=== PATIENT | female | born 1960 | race Two or more races ===

== ENCOUNTER 2017-10-13 13:07 | Outpatient (CLI) | payer OTHER | END 2017-10-13 14:00 | disposition home or self-care (01) | LOC: NUCLEAR 13:07 | DX: M81.0 Age-related osteoporosis without current pathological fracture (principal) ==

== ENCOUNTER 2017-10-13 14:32 | Outpatient (CLI) | payer OTHER | END 2017-10-13 14:35 | disposition home or self-care (01) | LOC: MAMO-SONO 14:32 | DX: Z12.31 Encounter for screening mammogram for malignant neoplasm of breast (principal); N61.0 Mastitis without abscess ==

== ENCOUNTER 2018-03-25 13:47 | Outpatient (CLI) | payer OTHER | END 2018-03-25 13:50 | disposition home or self-care (01) | LOC: SONOGRAMA 13:47 | DX: N60.02 Solitary cyst of left breast (principal) ==

== ENCOUNTER 2018-10-18 13:58 | Outpatient (CLI) | payer OTHER | END 2018-10-18 14:01 | disposition home or self-care (01) | LOC: MAMO-SONO 13:58 | DX: Z12.31 Encounter for screening mammogram for malignant neoplasm of breast (principal); N60.11 Diffuse cystic mastopathy of right breast; N60.12 Diffuse cystic mastopathy of left breast ==